=== PATIENT | male | born 1990 | race Caucasian/White ===

== ENCOUNTER 2016-10-09 06:44 | Emergency (ER) | payer OTHER ==
[2016-10-09] MEDS ORDERED: OXYCODONE-ACETAMINOPHEN 5-325 MG TABLET PO ONE (09:24)
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
[2016-10-09 11:00] VITALS: BP 129/79
== END 2016-10-09 10:57 | disposition home or self-care (01) ==
LOC: ER 06:44
PROC: 2W3DX1Z Immobilization of Left Lower Arm using Splint (ICD-10-PCS; principal; 2016-10-09)
DX: S52.502A Unspecified fracture of the lower end of left radius, initial encounter for closed fracture (principal); S43.402A Unspecified sprain of left shoulder joint, initial encounter; S80.212A Abrasion, left knee, initial encounter; S80.211A Abrasion, right knee, initial encounter; V29.88XA Motorcycle rider (driver) (passenger) injured in other specified transport accidents, initial encounter; Y92.410 Unspecified street and highway as the place of occurrence of the external cause
CPT/HCPCS: 99283